=== PATIENT | male | born 1960 | race Caucasian/White ===

== ENCOUNTER 2016-11-15 13:33 | Outpatient (CLI) | payer OTHER ==
--- NOTE | 2016-11-15 15:50 | Diagnostic Imaging Report ---
SRINIVASAN MARTINEZ - VANDANA [facility] [id number] [facility] [address] [place] [address]. [id number] Report Submission Date: Nov 15, 2016 2:05:53 PM CDT Patient Study Name: GAIL LOPEZ Date: Nov 15, 2016 1:43:17 PM CDT Modality Type: CT\SR Gender: M Description: CT BRAIN W/O CONTRAST : 58 Institution: [facility] Physician: SRINIVASAN MARTINEZ - VANDANA Head CT without contrast CLINICAL HISTORY: Episodic confusion. History of transient ischemic attack. TECHNIQUE: CT examination of the brain is performed in contiguous axial slices without the use of contrast. Sagittal and coronal reconstructions are performed by the technologist. FINDINGS: The 4th ventricle lies in a normal midline position. Ventricles and sulci are within normal limits for the patient's age. 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 There is no hypodense or hyperdense mass or intracranial hemorrhage. Visualized paranasal sinuses and the mastoid air cells are clear. 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 No acute intracranial changes. Electronically signed on Nov 15, 2016 2:05:53 PM CDT by: Celso WILLETT
== END 2016-11-15 13:35 ==
LOC: RAD 13:33
PROVIDERS: ATTEND Family Medicine
DX: R41.0 Disorientation, unspecified (principal)
CPT/HCPCS: 70450